=== PATIENT | male | born 1970 | race Caucasian/White ===

== ENCOUNTER 2021-03-13 08:00 | Outpatient (CLI) | payer BC ==
[2021-03-13 17:55] LABS: BASOPHILS % (AUTO) 0.6 %; EOSINOPHILS # (AUTO) 0.2 10^3/uL (0.0-0.7); EOSINOPHILS % (AUTO) 2.6 %; HGB - HEMOGLOBIN 16.7 g/dL (14.0-18.0); LYMPHOCYTES # (AUTO) 2.1 10^3/uL (1.5-3.5); LYMPHOCYTES % (AUTO) 28.6 %; MEAN CORPUSCULAR HEMOGLOBIN 29.7 pg (27.0-31.0); MEAN CORPUSCULAR HGB CONC 34.8 g/dL (32.0-36.0); MEAN CORPUSCULAR VOLUME 85.3 fL (80.0-94.0); MEAN PLATELET VOLUME 12.3 fL (7.4-11.4); MONOCYTES # (AUTO) 0.4 10^3/uL (0.0-1.0); MONOCYTES % (AUTO) 6.1 %; NEUTROPHILS # (AUTO) 4.4 10^3/uL (1.5-6.6); NEUTROPHILS % (AUTO) 61.7 %; PLT - PLATELET COUNT 138 10^3/uL (130-450); RED BLOOD COUNT 5.63 10^6/uL (4.70-6.10); RED CELL DISTRIBUTION WIDTH 13.2 % (12.0-15.0); WHITE BLOOD COUNT 7.2 x10^3/uL (4.8-10.8)
[2021-03-13 18:36] LABS: CREATININE 0.8 mg/dL (0.6-1.2)
[2021-03-13 19:03] LABS: CALCIUM 9.7 mg/dL (8.5-10.3); POTASSIUM 3.8 mmol/L (3.5-5.0)
[2021-03-13 20:49] LABS: ESTIMATED AVERAGE GLUCOSE 108 mg/dL (70-100); HEMOGLOBIN A1c% 5.4 % (4.27-6.07)
== END 2021-03-13 23:59 | disposition home or self-care (01) ==
LOC: LAB.N 08:00
PROVIDERS: ATTEND Physician Assistant Medical
DX: I10 Essential (primary) hypertension (principal)
CPT/HCPCS: 36415; 80048; 83036; 84443; 85025

== ENCOUNTER 2023-06-04 07:28 | Emergency (ER) | payer BC, OTHER ==
--- NOTE | 2023-06-04 07:35 | ED Physician Documentation ---
PD HPI ABD PAIN - Stated complaint Stated Complaint: ABD PX - History obtained from History obtained from: Patient - History of Present Illness Timing - onset: Yesterday Timing - duration: Days (1) Timing - details: Abrupt onset (he had some candy and drank a Kombucha, and soon after started to feel abd bloated, painful and with nausea, but no emesis nor diarrhea.), Still present, Waxing and waning (imporved some in evening to be able to sleep 5 hours, but then present again on this morning.) Quality: Cramping, Aching, Pain Location: All over / everywhere, RUQ, Epigastric Radiation: No: Lower back, Upper back Improved by: Other (had not had belching, flatus, PO intake, stool out this morning.) Worsened by: Eating, Palpation Associated symptoms: Nausea. No: Vomiting (once last evening, not since.), Hematemesis, Diarrhea Similar symptoms before: Has not had sx before PD PAST MEDICAL HISTORY - Past Medical History Cardiovascular: None Respiratory: None - Present Medications Home Medications: Ambulatory Orders Medication Instructions Recorded Confirmed HYDROcod/ACETAM 5/325 [Sligo 5/325] 1 ea PO Q6H PRN #10 tablet 06/04/23 HYDROcod/ACETAM 5/325 [Sligo 5/325] 1 ea PO Q6H PRN #12 tablet 06/04/23 Lisinopril [Zestril] 10 mg PO DAILY 06/04/23 06/04/23 Ondansetron Odt [Zofran] 4 mg TL Q6H PRN #10 tablet 06/04/23 hydroCHLOROthiazide [Hydrodiuril] 25 mg PO DAILY 06/04/23 06/04/23 - Allergies Allergies/Adverse Reactions: Allergies Allergy/AdvReac Type Severity Reaction Status Date / Time bee venom protein (honey bee) Allergy Edema Verified 06/04/23 08:19 Sulfa (Sulfonamide Allergy Nausea Verified 06/04/23 08:19 Antibiotics) - Living Situation Living Situation: reports: With friend(s) Living Arrangement: reports: At home - Social History Does the pt smoke?: Yes Smoking Status: Current every day smoker PD ED PE NORMAL - Vitals Vital signs reviewed: Yes - General General: Alert and oriented X 3, Well developed/nourished, Other (appears in considerable pain with moderately distended abdomen. ) - HEENT HEENT: Pharynx benign - Neck Neck: Supple, no meningeal sign, No adenopathy - Cardiac Cardiac: RRR, No murmur, No rub - Respiratory Respiratory: No respiratory distress, Clear bilaterally - Abdomen Abdomen: Soft, Other (tender epigastric and RUQ area without percussion nor rebound tenderness. BS increased. ). No: Normal bowel sounds (decreased) Results - Vitals Vitals: Vital Signs - 24 hr 06/04/23 06/04/23 06/04/23 07:39 08:43 09:52 Temperature 36.3 C L 36.3 C L Heart Rate 62 61 62 Respiratory 18 18 18 Rate Blood Pressure 206/110 H 158/88 H 147/85 H O2 Saturation 98 97 94 06/04/23 11:26 Temperature Heart Rate 60 Respiratory 18 Rate Blood Pressure 163/97 H O2 Saturation 94 Oxygen O2 Source Room air - Labs Labs: Laboratory Tests 06/04/23 06/04/23 06/04/23 07:53 07:53 07:59 WBC 6.9 RBC 6.08 Hgb 18.0 Hct 50.9 MCV 83.7 MCH 29.6 MCHC 35.4 RDW 13.2 Plt Count 204 MPV 10.6 Neut # (Auto) 5.8 Lymph # (Auto) 0.8 L Hardeman # (Auto) 0.2 Eos # (Auto) 0.0 Baso # (Auto) 0.0 Absolute Nucleated RBC 0.00 Nucleated RBC % 0.0 Sodium 135 Potassium 3.6 Chloride 98 L Carbon Dioxide 23 Anion Gap 14.0 H BUN 10 Creatinine 0.9 Estimated GFR (MDRD) 89 Glucose 228 H Lactic Acid Calcium 10.7 H Magnesium 1.6 L Total Bilirubin 5.2 H AST 322 H ALT 537 H Alkaline Phosphatase 130 H Total Protein 7.4 Albumin 5.0 Globulin 2.4 Albumin/Globulin Ratio 2.1 Lipase 26 Urine Color DARK YELLOW Urine Clarity CLEAR Urine pH 6.0 Ur Specific Jay >=1.030 H Urine Protein 100 H Urine Glucose (UA) >=1000 H Urine Ketones 40 H Urine Occult Blood MODERATE H Urine Nitrite NEGATIVE Urine Bilirubin MODERATE H Urine Urobilinogen >=8.0 H Ur Leukocyte Esterase NEGATIVE Urine RBC 11-25 H Urine WBC 0-3 Ur Squamous Epith Cells FEW Squamous Urine Bacteria None Seen Ur Microscopic Review INDICATED Urine Culture Comments NOT INDICATED 06/04/23 08:00 WBC RBC Hgb Hct MCV MCH MCHC RDW Plt Count MPV Neut # (Auto) Lymph # (Auto) Hardeman # (Auto) Eos # (Auto) Baso # (Auto) Absolute Nucleated RBC Nucleated RBC % Sodium Potassium Chloride Carbon Dioxide Anion Gap BUN Creatinine Estimated GFR (MDRD) Glucose Lactic Acid < 0.2 L Calcium Magnesium Total Bilirubin AST ALT Alkaline Phosphatase Total Protein Albumin Globulin Albumin/Globulin Ratio Lipase Urine Color Urine Clarity Urine pH Ur Specific Jay Urine Protein Urine Glucose (UA) Urine Ketones Urine Occult Blood Urine Nitrite Urine Bilirubin Urine Urobilinogen Ur Leukocyte Esterase Urine RBC Urine WBC Ur Squamous Epith Cells Urine Bacteria Ur Microscopic Review Urine Culture Comments - Rads (name of study) abd/pelvic CT Relevant Findings:: Prelim report reviewed (no signs of obstruction, perforation, free fluid. Lots of stones in GB. CBD appears normal size and no noted blockage. ), EMP independent interpretation of test RUQ US Relevant Findings:: Prelim report reviewed, Other (prelim from tech: normal wall. GB with lots of stones. CBD with normal caliber and no FB noted. ) PD Medical Decision Making - ED course Complexity details: reviewed results (elevated LFTs. Pt and friend state history of some elevation chronic. Prior labs through [facility] so I do not have access. However, the pt is doing well on recheck and clinically does not seem CBD blockage now. ), re-evaluated patient (He has considerabeld ecrease in symptoms, Minimal tdneerness over upper abd on recheck/after meds. CT showing lots of stones. CBD appeared normal. He does have elevated LFTs. got US to ensure still no CBD dilation/mass. US also showed normal CBD with GB having lots of stones. No wall thickening.), considered differential, d/w patient Reviewed Lab Results: He may have had some distension from the Kombucha and candy he had had to eat/d rink prior to symptoms onset. However CT does not show excess gas nor stool. Gallstones aplenty in GB. CBD normal caliber. LFTs elevated. My cocner is biliary colic as cause of symptoms, rather than food related. Since no signs of CBD blockage currently on imaging, and symptoms greatly improved, I felt clinically could be discharged and did not need MRCP at this time. Will want LFTs remeaured this coming week and to return to ER if worsened syptoms again. Departure - Departure Disposition: Home, Self Care Clinical Impression: Acute abdominal pain, Elevated LFTs Condition: Stable Record reviewed to determine appropriate education?: Yes Instructions: ED Gallstone W Biliary Colic Follow-Up: Trevor Jolly MD [Primary Care Provider] - [facility] [Provider Group] Prescriptions: HYDROcod/ACETAM 5/325 [Sligo 5/325] 1 ea PO Q6H PRN #10 tablet PRN Reason: Pain HYDROcod/ACETAM 5/325 [Sligo 5/325] 1 ea PO Q6H PRN #12 tablet PRN Reason: Pain Ondansetron Odt [Zofran] 4 mg TL Q6H PRN #10 tablet PRN Reason: Nausea / Vomiting Comments: Your abdominal pain and bloating may relate to the Kumbucha and candy that you had causing increased gassiness and stretching of the intestines. If so then it should not be a recurring issue. However you do have on blood test some elevation of your liver enzymes and on CT/ultrasound a goodly amount of gallstones and sludge in your gallbladder. This would raise the concern that there may be an stimulation or overstimulation of the gallbladder causing an excess contraction and spasm and possibly some sludging of material or bile in the common bile duct. There is no signs of dilation or material in the bile duct still which is good. Your pain is doing much better. At this point I would suggest home and clear liquids only for the next several hours or much of the day and bland food initially starting after that. I did prescribe some ondansetron nausea medication and a hydrocodone pain medication to use if you have recurring symptoms of mild or moderate degree. Return to the ER if significant severe pain again similarly. Follow-up with your primary care this coming week, call Tuesday to update. I will send in this report to their office. You would be good to have your liver enzymes and chemistry panel rechecked early to mid week to ensure the numbers are improving more towards your baseline. If you do not have further episodes like this then that would be a good thing. If you do have recurring episodes to a lesser degree in the near future, you may need to meet with or discuss with the surgeon indications for potential gallbladder surgery. Return to the ER if needed. I sent your prescriptions to [facility]. My narcotic instructions I am prescribing a short course of narcotic pain medication for you. These are potentially dangerous and addictive medications that should be used carefully. These medications may constipate you. Take an [id number] stool softener such as docusate twice daily with plenty of water while taking these medications. If you go 24 hours without a bowel movement, take [id number] MiraLAX, per package instructions. Do not drink or drive while taking these medications. If you received narcotic or sedating medications while in the emergency department do not drive for 24 hours. Store this medication in a safe, secure place and out of reach of children. It is a violation of federal law to give or sell this medication to another person or to use in a manner other than prescribed. The ED will not refill narcotic prescriptions, including prescriptions lost or stolen. You can dispose of unwanted medications at the [facility]'s office or at several pharmacies such as [facility]. Forms: PCP List Discharge Date/Time: 06/04/23 11:27
[2023-06-04] MEDS: KETOROLAC 15 MG/ML VIAL IVP STA (08:04)
[2023-06-04] MEDS: SODIUM CHLORIDE 0.9% 1,000 ML IV STA ×2 (08:04→10:10)
[2023-06-04] MEDS: HYDROmorphone 1 MG/ML CARPUJECT IVP STA (08:04)
[2023-06-04 08:07] LABS: BASOPHILS % (AUTO) 0.1 %; HCT - HEMATOCRIT 50.9 % (42.0-52.0); LYMPHOCYTES # (AUTO) 0.8 10^3/uL (1.5-3.5); LYMPHOCYTES % (AUTO) 12.1 %; MEAN CORPUSCULAR HEMOGLOBIN 29.6 pg (27.0-31.0); MEAN CORPUSCULAR HGB CONC 35.4 g/dL (32.0-36.0); MEAN CORPUSCULAR VOLUME 83.7 fL (80.0-94.0); MEAN PLATELET VOLUME 10.6 fL (7.4-11.4); MONOCYTES # (AUTO) 0.2 10^3/uL (0.0-1.0); MONOCYTES % (AUTO) 2.9 %; NEUTROPHILS # (AUTO) 5.8 10^3/uL (1.5-6.6); NEUTROPHILS % (AUTO) 84.6 %; PLT - PLATELET COUNT 204 10^3/uL (130-450); RED BLOOD COUNT 6.08 10^6/uL (4.70-6.10); RED CELL DISTRIBUTION WIDTH 13.2 % (12.0-15.0); WHITE BLOOD COUNT 6.9 x10^3/uL (4.8-10.8)
[2023-06-04 08:24] LABS: BILIRUBIN,URINE MODERATE (NEGATIVE); GLUCOSE, URINE (UA) >=1000 mg/dL (NEGATIVE); KETONES,URINE (UA) 40 mg/dL (NEGATIVE); LEUKOCYTE ESTERASE, URINE NEGATIVE (NEGATIVE); NITRITE,URINE NEGATIVE (NEGATIVE); OCCULT BLOOD,URINE MODERATE (NEGATIVE); PROTEIN,URINE 100 mg/dL (NEGATIVE); UROBILINOGEN,URINE >=8.0 E.U./dL (NORMAL)
[2023-06-04 09:17] LABS: CLARITY,URINE CLEAR (CLEAR)
[2023-06-04] MEDS ORDERED: iohexoL-300 100 ML VIAL ONE (09:17)
[2023-06-04 09:18] LABS: BACTERIA,URINE None Seen /HPF (None Seen); SQUAMOUS EPITHELIAL CELL,UR FEW Squamous (<= Few); WBC,URINE 0-3 /HPF (0-3)
[2023-06-04 09:29] LABS: ALBUMIN/GLOBULIN RATIO 2.1 (1.0-2.2); BILIRUBIN,TOTAL 5.2 mg/dL (0.2-1.0); CALCIUM 10.7 mg/dL (8.5-10.3); CREATININE 0.9 mg/dL (0.6-1.3); MAGNESIUM 1.6 mg/dL (1.7-2.3); POTASSIUM 3.6 mmol/L (3.5-4.5); TOTAL PROTEIN 7.4 g/dL (6.4-8.9)
[2023-06-04] MEDS: iohexoL-300 100 ML VIAL IVP ONE (09:41)
[2023-06-04 09:52] VITALS: O2SAT 94
--- NOTE | 2023-06-04 10:04 | CT Report ---
PROCEDURE: Abdomen/Pelvis W INDICATIONS: onset abd pain yesterday, increasing CONTRAST: 100ml omni 300 TECHNIQUE: After the administration of intravenous contrast, a CT scan of the abdomen and pelvis was performed. Images were recorded and evaluated at appropriate window settings. Reformats: coronal and sagittal. F or radiation dose reduction, the following was used: automated exposure control, adjustment of mA and /or kV according to patient size. COMPARISON: None. FINDINGS: Image quality: Diagnostic Lower chest: Basal atelectasis or scarring. Right basal granuloma. Mildly patulous distal esophagus i s nonspecific. Borderline cardiomegaly. Liver: Possible hepatic steatosis. Questionable hypervascular lesion at the dome (06/12) measuring 1 c m. Gallbladder and biliary system: Cholelithiasis. The gallbladder does not appear particularly distende d. No biliary ductal dilation. Pancreas: No ductal dilation Spleen: Upper limit of normal measuring 13 cm Adrenals: No discrete nodules Kidneys: No solid mass. No hydronephrosis. Vessels and lymph nodes: The main portal vein is patent. No abdominal aortic aneurysm. No pathologic lymph nodes by size criteria. Bowel and peritoneum: Stomach is mildly distended. No evidence of small bowel obstruction. No acute i ntra-abdominal abscess or pathologic ascites. Submucosal fatty in the sigmoid colon and distal descen ding colon. This is also seen to a lesser extent in the cecum. The appendix is nondilated. Body wall: Unremarkable. Tiny fat-containing umbilical and inguinal hernias. Pelvis: Bladder is unremarkable. The prostate is not well evaluated on CT. Bones: No acute or suspicious osseous findings. IMPRESSION: No acute abdominopelvic abnormality. Cholelithiasis. Consider ultrasound to further evaluate the gallbladder if needed. Submucosal fatty deposition in segmental areas of the large bowel, most commonly due to prior inflamm ation, but is nonspecific. Normal size appendix. Tiny hypervascular lesion at the liver dome, most commonly a benign hemangioma. This could be confirm ed on MRI, particularly if the patient has risk factors or personal history of malignancy. Other findings as above. Reviewed by: Dimas Sevilla MD on 06/04/2023 10:03 AM [facility] Approved by: Dimas Sevilla MD on 06/04/2023 10:03 AM PST Station ID: [id number]
--- NOTE | 2023-06-04 11:06 | Ultrasound Report ---
PROCEDURE: Abdomen Limited INDICATIONS: abd pain, elevated LFTs. stone in GB on CT. TECHNIQUE: Real-time focused scanning was performed of the abdomen, with image documentation. COMPARISONS: None. FINDINGS: Liver measures 14 cm and is heterogeneous. Cholelithiasis. No significant tenderness. Hepatopedal main portal venous flow. CBD is 4 mm Pancreas is not well seen. Right kidney measures 10 cm. IMPRESSION: Cholelithiasis without focal tenderness to suggest acute cholecystitis on ultrasound. Heterogeneous hepatic echotexture is nonspecific, possibly chronic hepatocellular disease. Reviewed by: Dimas Sevilla MD on 06/04/2023 11:05 AM PST Approved by: Dimas Sevilla MD on 06/04/2023 11:05 AM PST Station ID: [id number]
[2023-06-04] MEDS: MAG HYDROX/AL HYDROX/SIMETH 30 ML UDC PO STA (11:19)
[2023-06-04 11:29] VITALS: BP 163/97
== END 2023-06-04 11:27 | disposition home or self-care (01) ==
LOC: ED 07:28
DX: R10.84 Generalized abdominal pain (principal); R10.11 Right upper quadrant pain; R10.13 Epigastric pain; R79.89 Other specified abnormal findings of blood chemistry; F17.200 Nicotine dependence, unspecified, uncomplicated; Z79.899 Other long term (current) drug therapy
CPT/HCPCS: 36415; 74177; 76705; 80053; 81001; 83605; 83690; 83735; 85025; 96374; 96375; 99284; A9270; J1170; Q9967; 81003; 87086

== ENCOUNTER 2023-06-17 16:16 | Outpatient (CLI) | payer OTHER ==
[2023-06-17 22:00] LABS: ALBUMIN 4.9 g/dL (3.2-5.5); BILIRUBIN,DIRECT 0.17 mg/dL (0.03-0.18); BILIRUBIN,TOTAL 1.1 mg/dL (0.2-1.0); TOTAL PROTEIN 7.6 g/dL (6.4-8.9)
[2023-06-20 05:08] LABS: HBsAG SCREEN Negative (Negative)
[2023-06-20 06:08] LABS: CERULOPLASMIN 25.5 mg/dL (16.0-31.0); HCV AB Non Reactive (Non Reactive)
[2023-06-20 07:08] LABS: HIV SCREEN 4TH GENERATION Non Reactive (Non Reactive)
[2023-06-21 17:08] LABS: ACTIN (SMOOTH MUSCLE) ANTIBODY 5 Units (0-19); MITOCHONDRIAL (M2) ANTIBODY <20.0 Units (0.0-20.0)
[2023-06-22 13:10] LABS: HCV IU/ML HCV Not Detected IU/mL (.)
[2023-06-22 14:09] LABS: ANTINUCLEAR ANTIBODIES IFA Negative (.)
== END 2023-06-17 16:17 | disposition home or self-care (01) ==
LOC: LAB.N 16:16
PROVIDERS: ATTEND Family Medicine
DX: E78.5 Hyperlipidemia, unspecified (principal); R74.01 Elevation of levels of liver transaminase levels
CPT/HCPCS: 36415; 80076; 82390; 82977; 83615; 86015; 86038; 86381; 86803; 87340; 87389; 87522

== ENCOUNTER 2023-08-18 10:07 | Day surgery (SDC) | payer OTHER ==
[2023-08-18] MEDS: LACTATED RINGERS 1,000 ML IV ONE (10:20)
[2023-08-18] MEDS ORDERED: ceFAZolin 2 GM VIAL ONE (10:35)
--- NOTE | 2023-08-18 11:06 | ANESTHESIA ---
Pre-Anesthesia VS, & Labs - Diagnosis chronic cholecystitis - Procedure laparoscopic cholecystectomy Height: 6 ft 3 in Weight (kg): 105.1 kg Body Mass Index: 28.9 BMI Classification: Overweight - NPO >8 hours Home Medications and Allergies Home Medications: Ambulatory Orders Acetaminophen [Tylenol] 650 mg PO Q6H PRN 08/11/23 Lisinopril/Hydrochlorothiazide [Zestoretic 20-25 mg Tablet] 1 each PO DAILY 08/11/23 Acetaminophen [Tylenol] 650 mg PO Q6H PRN 08/11/23 Lisinopril/Hydrochlorothiazide [Zestoretic 20-25 mg Tablet] 1 each PO DAILY 08/11/23 Allergies/Adverse Reactions: Allergies Allergy/AdvReac Type Severity Reaction Status Date / Time bee venom protein (honey bee) Allergy Edema Verified 06/04/23 08:19 Sulfa (Sulfonamide Allergy flu Verified 08/11/23 10:59 Antibiotics) symptoms Anes History & Medical History - Anesthetic History Anesthesia Complications: reports: No previous complications - Medical History Cardiovascular: reports: Hypertension Pulmonary: reports: None Gastrointestinal: reports: None Urinary: reports: Kidney stones Musculoskeletal: reports: Other Endocrine/Autoimmune: reports: Other Skin: reports: Psoriasis Smoking Status: Former smoker Psychosocial: reports: Alcohol (3 beers monthly) Exam General: Alert, Oriented x3 Dental: WNL Mouth Opening: Greater than 4 Fingerbreadths Neck Mobility: Normal Mallampati classification: II Thyromental Distance: greater than 6 cm Respiratory: Lungs clear Cardiovascular: Regular rate Plan Anesthesia Type: General Consent for Procedure(s) Verified and Reviewed: Yes Code Status: Attempt Resuscitation ASA classification: 2-Mild systemic disease Is this case an emergency?: No
[2023-08-18] MEDS ORDERED: BUPIVACAINE 0.25% PF 30 ML VIAL ONE (11:08)
[2023-08-18] MEDS ORDERED: MIDAZOLAM 2 MG/2 ML VIAL ONE (11:09)
[2023-08-18] MEDS ORDERED: fentaNYL 100 MCG/2 ML VIAL ONE ×2 (11:09→12:06)
[2023-08-18] MEDS ORDERED: ROCURONIUM 50 MG/5 ML VIAL ONE ×2 (11:09→12:06)
[2023-08-18] MEDS ORDERED: PROPOFOL 200 MG/20 ML VIAL IVP ONE (11:09)
[2023-08-18] MEDS ORDERED: NALOXONE 0.4 MG/ML VIAL IVP PRN (11:12)
[2023-08-18] MEDS ORDERED: MORPHINE 2 MG/ML CARPUJECT IVP PRN (11:12)
[2023-08-18] MEDS ORDERED: METOCLOPRAMIDE 10 MG/2 ML VIAL IVP PRN (11:12)
[2023-08-18] MEDS ORDERED: ONDANSETRON 4 MG/2 ML VIAL IVP PRN ×2 (11:12→13:04)
[2023-08-18] MEDS ORDERED: ePHEDrine 50 MG/ML VIAL IVP PRN (11:12)
[2023-08-18] MEDS ORDERED: fentaNYL 100 MCG/2 ML VIAL IVP PRN (11:12)
[2023-08-18] MEDS ORDERED: HYDROmorphone 0.5 MG/0.5 ML SYRINGE IVP PRN ×2 (11:12→13:04)
[2023-08-18] MEDS ORDERED: ATROPINE ABBOJECT 1 MG/10 ML SYRINGE IVP PRN (11:12)
--- NOTE | 2023-08-18 11:24 | HISTORY & PHYSICAL EXAMINATION ---
Chief Complaint - Chief Complaint Chief Complaint: here for gallbladder surgery History of Present Illness - History Obtained From Records Reviewed: yes History obtained from: pt Exam Limitations: none - History of Present Illness HPI Comment/Other: history significant epigastric pain and passing gallstones with elevated lfts. currently well History - Past Medical History Cardiovascular: reports: Hypertension Respiratory: reports: None Endocrine/Autoimmune: reports: Other GI: reports: None : reports: Kidney stones HEENT: reports: Chronic vision loss Psych: reports: None Musculoskeletal: reports: Other Derm: reports: Psoriasis MRSA Hx?: No - Family & Social History Living Situation: With friend(s) - POLST Patient has POLST: No Meds/Allgy - Home Medications Home Medications: Ambulatory Orders Medication Instructions Recorded Confirmed Acetaminophen [Tylenol] 650 mg PO Q6H PRN 08/11/23 08/11/23 Lisinopril/Hydrochlorothiazide 1 each PO DAILY 08/11/23 08/11/23 [Zestoretic 20-25 mg Tablet] - Allergies Allergies/Adverse Reactions: Allergies Allergy/AdvReac Type Severity Reaction Status Date / Time bee venom protein (honey bee) Allergy Edema Verified 06/04/23 08:19 Sulfa (Sulfonamide Allergy flu Verified 08/11/23 10:59 Antibiotics) symptoms Review of Systems - Other Findings Other Findings: 10 pt ros as above otherwise unremarkable Exam - Physical Exam General Appearance: positive: No acute distress, Alert Eyes Bilateral: positive: PERRL, EOMI ENT: positive: No signs of dehydration Neck: positive: No JVD, Trachea midline Respiratory: positive: No respiratory distress Cardiovascular: positive: Regular rate & rhythm Abdomen: positive: Non-tender, No distention Neurologic/Psychiatric: positive: Oriented x3 Conclusion/Plan - Problem List (1) Chronic cholecystitis Conclusion/Plan: plan lap courtney. [place] held and consent obtained
[2023-08-18] MEDS ORDERED: ONDANSETRON 4 MG/2 ML VIAL ONE (11:44)
[2023-08-18] MEDS ORDERED: DEXAMETHASONE 4 MG/ML VIAL ONE (11:44)
[2023-08-18] MEDS ORDERED: LACTATED RINGERS 1,000 ML IV SCH (12:00)
[2023-08-18] MEDS: BUPIVACAINE 0.25% PF 30 ML VIAL SUBQ ONE (12:14)
[2023-08-18] MEDS ORDERED: SUGAMMADEX 200 MG/2 ML VIAL IVP ONE (12:19)
[2023-08-18] MEDS ORDERED: KETOROLAC 30 MG/ML VIAL ONE (12:19)
[2023-08-18] MEDS ORDERED: LABETALOL 5 MG/1 ML 20 ML MDV ONE (12:26)
[2023-08-18] MEDS ORDERED: HYDROmorphone 1 MG/ML CARPUJECT ONE (12:41)
[2023-08-18] MEDS: LACTATED RINGERS 300 ML IV ONE ×2 (13:03→13:28)
--- NOTE | 2023-08-18 13:12 | OPERATIVE REPORT ---
Operative Report - General Procedure Date: 08/18/23 Planned Procedure: lap courtney Pre-Op Diagnosis: chronic cholecystitis and hx choledocholithiasis Procedure Performed: lap courtney Post Op Diagnosis: same - Procedure Note Primary Surgeon: lou mistry Anesthesia Technique: General ET tube, Local Pathology: gb Estimated Blood Loss (mL): 5 Drain/Tube Type: Other (none) Indications: hx epigastric pain choledocholithiasis Findings: distended gallbladder and very large gallstone. normal liver Complications: none - Other Other Information/Narrative: The patient was properly identified, brought to the operating room and placed in supine position. Sequential compression devices were placed. General endotracheal anesthesia was induced. The patient was prepped and draped in a sterile fashion and given preoperative antibiotics. Local anesthetic was given to incision areas. An incision was made in the periumbilical area. Dissection proceeded down to fascia. The fascia was incised lifted upwards and abdomen entered with a Veress needle. CO2 was insufflated to a pressure of 15. An 11 mm trocar followed by a 30 degree scope was placed. There was no evidence of injury from Veress needle or trocar placement. Under direct vision 2 5 mm trochars were placed in the right upper quadrant and an 11 mm trocar was placed in the epigastrium. Body of the gallbladder was retracted anterior. Lateral attachments were partially taken down further mobilizing the gallbladder more anterior and away from the duodenum. The infundibulum of the gallbladder was then retracted right lateral and caudad. With minimal use of cautery a large bare cystic plate area or window was carefully created. The cystic duct was inspected from right lateral and left lateral positions. [] The cystic duct was then clipped at the gallbladder and 3 times slightly proximal and sharply divided. The cystic artery was clipped at the gallbladder and then 2 times slightly proximal and sharply divided. The gallbladder was mobilized off from the bed of the liver with hook cautery. The gallbladder was placed in Endo Catch bag and brought out through the epigastric trocar site. Hemostasis was assured. Trochars were removed under direct vision. Fascia at the larger trocar sites was closed with [id number] are running 0 Vicryl suture. Subcutaneous tissue was irrigated and skin closed with interrupted 4-0 Monocryl. Dressings were applied. Patient tolerated the procedure well was awakened and brought to recovery in good condition.
[2023-08-18] MEDS ORDERED: HYDROcod/ACETAM 5/325 MG TABLET ONE (14:04)
[2023-08-18] MEDS: HYDROcod/ACETAM 5/325 MG TABLET PO PRN (14:06)
[2023-08-18 14:14] VITALS: O2SAT 94
[2023-08-18 14:42] VITALS: BP 158/90
--- NOTE | 2023-08-18 15:58 | ANESTHESIA POST OP EVALUATION ---
Anesthesia Post Eval - Post Anesthesia Eval Vitals: Last Vital Signs Temp 36.7 C 08/18/23 14:33 Pulse 55 L 08/18/23 14:33 Resp 14 08/18/23 14:33 BP 158/90 H 08/18/23 14:33 Pulse Ox 94 08/18/23 14:33 O2 Flow Rate CV Function Including HR & BP: Stable Pain Control: Satisfactory Nausea & Vomiting: Negative Mental Status: Baseline Respiratory Status: Airway Patent Hydration Status: Satisfactory Anesthesia Complications: None
== END 2023-08-18 10:08 | disposition home or self-care (01) ==
LOC: SDS 10:07
PROVIDERS: ATTEND Surgery
PROC: 0FT44ZZ Resection of Gallbladder, Percutaneous Endoscopic Approach (ICD-10-PCS; principal; 2023-08-18 12:00)
DX: K80.10 Calculus of gallbladder with chronic cholecystitis without obstruction (principal); I10 Essential (primary) hypertension; Z87.891 Personal history of nicotine dependence
CPT/HCPCS: 47562; A9270; J1170; J7120